=== PATIENT | male | born 1980 | race Caucasian/White ===

== ENCOUNTER 2023-06-15 19:20 | Emergency (ER) | payer OTHER, SELFPAY ==
[2023-06-15 19:28] VITALS: BP 143/95; PULSE 79; RESP 16; O2SAT 100; BMI 22.8
--- NOTE | 2023-06-15 19:38 | ECG_ITS ---
The [facility] Test Date: 2023-06-15 Pat Name: BRITT LAMB Department: Room: - Gender: Male [employer] Custodian: : 1980 Requested By: [id number] Order Number: [id number] Reading MD: ENMANUEL MARINA Measurements Intervals Speed Rate: 67 P: 62 VA: 162 QRS: 54 QRSD: 92 T: 36 QT: 394 QTc: 409 Interpretive Statements 1100 Sinus rhythm 2420 RSR (QR) in lead V1/V2, consistent with right ventricular conduction delay 9130 borderline ECG No previous ECG available for comparison Electronically Signed On 06-16-2023 6:57:20 EDT by ENMANUEL MARINA
--- NOTE | 2023-06-15 19:45 | CT_ITS ---
The [address] [address] Patient Name: BRITT LAMB MRN: [id number] date: 1980 Sex: M Assigned Patient Location: ER Current Patient Location: ER Accession/Order Number: [id number] Exam Date: 06/15/2023 20:59 Report Date: 06/15/2023 21:40 At the request of: WHITNEY MEDRANO Procedure: CT head/brain wo con CT HEAD WITHOUT CONTRAST. INDICATION: Dizziness. COMPARISON: None available for comparison TECHNIQUE: Axial CT head images from the skull base to the vertex without IV contrast were acquired. Coronal and sagittal reformats were also obtained. FINDINGS: EXTRA-AXIAL SPACE: Age-appropriate ventricles. No acute extra-axial collection. No extra-axial mass. No midline shift. CEREBRUM: No focal abnormality. No CT evidence of acute large territorial cortical infarct, hemorrhage or mass effect. CEREBELLUM: No focal abnormality. No CT evidence of acute infarct, hemorrhage or mass effect. BRAINSTEM: No focal abnormality. No CT evidence of acute infarct, hemorrhage or mass effect. EXTRACRANIAL STRUCTURES. The paranasal sinuses are clear. Mastoid air cells are clear. Orbits are unremarkable. No discrete pituitary mass. Intact calvarium. CT/CT head/brain wo con IMPRESSION: No acute intracranial abnormality. Electronically authenticated by: MEGAN EUBANKS Date: 06/15/2023 21:40
--- NOTE | 2023-06-15 19:46 | ED.DIZZY1 ---
HPI - Dizziness General Chief Complaint: Dizziness Stated Complaint: DIZZINESS, FATIGUE Time Seen by Provider: 06/15/23 19:23 History of Present Illness HPI Narrative: patient is a 42-year-old male who presents to the emergency department for the evaluation of dizziness/lightheadedness for the last month. he describes the dizziness as feeling off balance. He has not had any sensation of spinning. He has not had any severe headaches, visual changes, peripheral paresthesias. He has not passed out or had any head injuries. He denies any fevers, cough, congestion. he has not had any vomiting, diarrhea. He is eating and drinking well with no decrease in urination. He states he had an episode of dizziness today at work and went to the [facility] where he was told that his blood pressure was low and that he may be dehydrated. He states that these episodes of dizziness do not correlate with physical activity, he was able to pull weeds and mow his lawn yesterday with no episodes of dizziness. Related Data Allergies Allergy/AdvReac Type Severity Reaction Status Date / Time No Known Drug Allergies Allergy Verified 06/15/23 19:35 Review of Systems ROS Constitutional Denies: fever or chills Eyes Denies: change in vision Ears, nose, mouth, and throat Denies: throat pain Cardiovascular Denies: chest pain Respiratory Denies: shortness of breath or cough Gastrointestinal Denies: nausea or vomiting Musculoskeletal Denies: back pain or neck pain Integumentary/Breast Denies: rash Neurological Reports: dizziness; Denies: headache or weakness in extremities Hematologic/Lymphatic Denies: easy bruising PFSH PFS Social History Smoking status: Current every day smoker Exam Narrative Exam Narrative: Gen.: Awake, alert, in no distress Head: Normocephalic, atraumatic ENT: Moist mucous membranes Respiratory: No respiratory distress, lungs clear bilaterally Cardio: Regular rate and rhythm Extremities: Moves extremities equally, no injuries noted Psych: Normal mood and affect Neuro: No focal neuro deficit Skin: Warm, dry, intact Constitutional Vital Signs, click to edit/add: Last Vital Signs Pulse 79 06/15/23 19:28 Resp 16 06/15/23 19:28 BP 143/95 H 06/15/23 19:28 Pulse Ox 100 06/15/23 19:28 O2 Del Method Room Air 06/15/23 19:28 Course Vital Signs Vital signs: Vital Signs Pulse Rate 79 06/15/23 19:28 Respiratory Rate 16 06/15/23 19:28 Blood Pressure 143/95 H 06/15/23 19:28 Pulse Oximetry 100 06/15/23 19:28 Oxygen Delivery Method Room Air 06/15/23 19:28 Pulse Rate 79 06/15/23 19:28 Respiratory Rate 16 06/15/23 19:28 Blood Pressure 143/95 H 06/15/23 19:28 Pulse Oximetry 100 06/15/23 19:28 Oxygen Delivery Method Room Air 06/15/23 19:28 MDM - Dizziness MDM Narrative Medical decision making narrative: patient with normal vital signs, benign neuro exam. CT of the brain is unremarkable and lab studies including mono screen, thyroid studies are within normal limits. He is eating and drinking well, able to drink fluids in the Emergency Room. No indication for IV fluids at this time. He was strongly encouraged follow-up with his PCP for further evaluation and treatment. Return to the Emergency Room if symptoms change or worsen. Medical Records Attestation: I reviewed the patient's medical records. Lab Data Attestation: I reviewed the patient's lab results. Labs: Lab Results 06/15/23 Range/Units 19:56 WBC 8.1 (4.0-11.0) 10^3/uL RBC 4.99 (4.70-6.10) 10^6/uL Hgb 15.0 (14.0-18.0) g/dL Hct 43.2 (42.0-54.0) % MCV 86.6 (80.0-94.0) fL MCH 30.1 (25.9-34.0) pg MCHC 34.7 (29.9-35.2) g/dL RDW 12.9 (11.0-15.0) % Plt Count 398 (150-450) 10^3/uL MPV 9.6 (9.5-13.5) fL Neut % (Auto) 59.5 (43.0-75.0) % Lymph % (Auto) 33.2 (20.5-60.0) % Tama % (Auto) 5.1 (1.7-12.0) % Eos % (Auto) 1.7 (0.9-7.0) % Baso % (Auto) 0.4 (0.2-2.0) % Neut # (Auto) 4.8 (1.4-6.5) 10^3/uL Lymph # (Auto) 2.7 (1.2-3.8) 10^3/uL Tama # (Auto) 0.4 (0.3-0.8) 10^3/uL Eos # (Auto) 0.1 (0.0-0.7) 10^3/uL Baso # (Auto) 0.0 (0.0-0.1) 10^3/uL Abs Immat Gran (auto) 0.01 (0.00-0.03) 10^3/uL Imm/Tot Granulo (auto) 0.1 (0.0-0.5) % Sodium 136 (136-145) mmol/L Potassium 3.8 (3.5-5.1) mmol/L Chloride 101 (98-107) mmol/L Carbon Dioxide 28.4 (21.0-32.0) mmol/L Anion Gap 10.4 BUN 12.0 (7.0-18.0) mg/dL Creatinine 1.00 (0.70-1.30) mg/dL Est GFR ( Amer) >60 (>=60) Est GFR (Non-Af Amer) >60 (>=60) BUN/Creatinine Ratio 12.0 Glucose 90 (74-106) mg/dL Lactate 0.8 (0.4-2.0) mmol/L Calcium 9.2 (8.5-10.1) mg/dL Magnesium 2.0 (1.8-2.4) mg/dL Total Bilirubin 1.0 (0.2-1.0) mg/dL AST 15 (15-37) U/L ALT 36 (16-63) U/L Alkaline Phosphatase 100 (46-116) U/L Troponin I High Sens <4.0 L (4.0-76.1) pg/mL Total Protein 7.2 (6.4-8.2) g/dL Albumin 4.2 (3.4-5.0) g/dL Globulin 3.0 g/dL Albumin/Globulin Ratio 1.4 TSH 1.961 (0.358-3.740) uIU/mL Imaging Data CT scan - head: Attestation: I have reviewed the pertinent imaging results. Radiologist's impression: Procedure: CT head/brain wo con CT HEAD WITHOUT CONTRAST. INDICATION: Dizziness. COMPARISON: None available for comparison TECHNIQUE: Axial CT head images from the skull base to the vertex without IV contrast were acquired. Coronal and sagittal reformats were also obtained. FINDINGS: EXTRA-AXIAL SPACE: Age-appropriate ventricles. No acute extra-axial collection. No extra-axial mass. No midline shift. CEREBRUM: No focal abnormality. No CT evidence of acute large territorial cortical infarct, hemorrhage or mass effect. CEREBELLUM: No focal abnormality. No CT evidence of acute infarct, hemorrhage or mass effect. BRAINSTEM: No focal abnormality. No CT evidence of acute infarct, hemorrhage or mass effect. EXTRACRANIAL STRUCTURES. The paranasal sinuses are clear. Mastoid air cells are clear. Orbits are unremarkable. No discrete pituitary mass. Intact calvarium. IMPRESSION: No acute intracranial abnormality. Electronically authenticated by: MEGAN EUBANKS Date: 06/15/2023 21:40 ECG Data Attestation: I personally reviewed and interpreted this ECG as follows: (normal sinus rhythm at a rate of sixty-seven, no acute ST elevation or ectopy. EKG reviewed by attending physician) Discharge Plan Discharge Chief Complaint: Dizziness Clinical Impression: Dizziness Patient Disposition: Home, Self-Care Time of Disposition Decision: 21:44 Condition: Good Instructions: Lightheadedness (ED), Dizziness (ED) Stand Alone Forms: Portal Instructions Referrals: HERNANDO SAAVEDRA [Primary Care Provider] - 1 week
[2023-06-15 20:05] LABS: Basophils Percent Auto 0.4 % (0.2-2.0); Eosinophils Absolute Auto 0.1 10^3/uL (0.0-0.7); Eosinophils Percent Auto 1.7 % (0.9-7.0); Hematocrit 43.2 % (42.0-54.0); Immature Granulocytes Abs Auto 0.01 10^3/uL (0.00-0.03); Immature Granulocytes Pct Auto 0.1 % (0.0-0.5); Lymphocytes Absolute Auto 2.7 10^3/uL (1.2-3.8); Lymphocytes Percent Auto 33.2 % (20.5-60.0); Mean Corpuscular HGB Conc 34.7 g/dL (29.9-35.2); Mean Corpuscular Hemoglobin 30.1 pg (25.9-34.0); Mean Corpuscular Volume 86.6 fL (80.0-94.0); Mean Platelet Volume 9.6 fL (9.5-13.5); Monocytes Absolute Auto 0.4 10^3/uL (0.3-0.8); Monocytes Percent Auto 5.1 % (1.7-12.0); Neutrophils Absolute Auto 4.8 10^3/uL (1.4-6.5); Neutrophils Percent Auto 59.5 % (43.0-75.0); Platelet Count 398 10^3/uL (150-450); Red Blood Count 4.99 10^6/uL (4.70-6.10); Red Cell Distribution Width 12.9 % (11.0-15.0); White Blood Count 8.1 10^3/uL (4.0-11.0)
[2023-06-15 20:32] LABS: Lactate/Lactic Acid 0.8 mmol/L (0.4-2.0)
[2023-06-15 20:36] LABS: Alanine Aminotransferase 36 U/L (16-63); Albumin Globulin Ratio 1.4; Albumin Level 4.2 g/dL (3.4-5.0); Alkaline Phosphatase 100 U/L (46-116); Anion Gap 10.4; Aspartate Amino Transferase 15 U/L (15-37); Calcium 9.2 mg/dL (8.5-10.1); Carbon Dioxide 28.4 mmol/L (21.0-32.0); Chloride 101 mmol/L (98-107); Estimated GFR (African America >60 (>=60); Estimated GFR (Non-African Ame >60 (>=60); Glucose 90 mg/dL (74-106); Potassium 3.8 mmol/L (3.5-5.1); Sodium 136 mmol/L (136-145); Thyroid Stimulating Hormone 1.961 uIU/mL (0.358-3.740); Total Protein 7.2 g/dL (6.4-8.2); Troponin I High Sensitivity <4.0 pg/mL (4.0-76.1)
[2023-06-15 20:51] LABS: Bilirubin Urine NEGATIVE (NEGATIVE); Blood Urine NEGATIVE (NEGATIVE); Clarity Urine CLEAR (CLEAR); Color Urine LT. YELLOW (YELLOW); Glucose Urine UA NEGATIVE (NEGATIVE); Ketones Urine NEGATIVE (NEGATIVE); Leukocyte Esterase Urine NEGATIVE (NEGATIVE); Nitrite Urine NEGATIVE (NEGATIVE); Protein Urine NEGATIVE (NEG/TRACE); Specific Gravity Urine <=1.005 (1.005-1.025); Urobilinogen Urine 0.2 EU/dL (0.2-1.0); pH Urine 6.5 (5.0-9.0)
[2023-06-15 21:32] LABS: Urine Microscopic Indicated NO
[2023-06-15 21:42] LABS: Mono Screen NEGATIVE (NEGATIVE)
== END 2023-06-15 22:00 | disposition home or self-care (01) ==
PROVIDERS: Physician Assistant; Emergency Provider Emergency Medicine; PCP Family Medicine
DX: R42 Dizziness and giddiness (principal); F17.210 Nicotine dependence, cigarettes, uncomplicated
CPT/HCPCS: 36415; 70450; 80053; 81003; 83605; 83735; 84443; 84484; 85025; 86308; 93005; 99285

== ENCOUNTER 2023-06-25 16:17 | Outpatient (RCR) | payer OTHER, SELFPAY | END 2023-06-26 16:30 | disposition home or self-care (01) | LOC: PT 16:17 | PROVIDERS: PCP Family Medicine; Visit Provider Family Medicine | DX: H81.10 Benign paroxysmal vertigo, unspecified ear (principal) | CPT/HCPCS: 95992; 97161 ==

== ENCOUNTER 2024-12-19 18:40 | Emergency (ER) | payer OTHER, SELFPAY ==
[2024-12-19] VITALS (11 sets, daily range): BP systolic 130–138; BP diastolic 88–98; PULSE 57–82; TEMP 36.8; O2SAT 99; BMI 20.8
--- OUTSIDE RECORDS SUMMARY | 2024-12-19 18:50 | XMS_ITS | CCD ---
Author Organization [facility] Care Team Providers Care Accounts Receivable Assistant Name Role Phone Ritu Matthews Unavailable Unavailable Ritu Matthews Unavailable Unavailable JACE, HERNANDO~[id number] UNKNOWN Unavailable Unavailable Jace, Hernando Unavailable Medications Current Medications Medication Drug Class(es) Dates Sig (Normalized) Sig (Original) amoxicillin 875 mg oral tablet (1 source) Penicillin-class Antibacterial Start: 01-10-2015 take 1 tablet by mouth every twelve hours Amoxicillin 875 MG 1 tablet Orally Twice a day for 7 day(s) Dec, Active amoxicillin 875 mg / clavulanate 125 mg oral tablet (5 sources) Penicillin-class Antibacterial Start: 04-29-2024 take 0.5 tablet by mouth twice daily Amoxicillin-Pot Clavulanate Active 0.5 TAB PO Twice daily April 29, 2024 12:00am Start: 04-08-2021 take 1 tablet by montserrat th every twelve hours Amoxicillin-Pot Clavulanate 875-125 MG 1 tablet Orally every 12 hrs for 10 days Mar, Active clindamycin 300 mg oral capsule (1 source) Lincosamide Antibacterial Start: 04-29-2024 take 300 mg by mouth three times daily Clindamycin Hcl Active 300 MG PO Three times daily 17 04April 29, 2024 12:00am Problems Active Problems Problem Classification Problem Date Documented Da te Episodic/Chronic Conditions associated with dizziness or vertigo (1 source) Dizziness and giddiness Episodic Diseases of mouth; excluding dental (6 sources) Sialolithiasis; Translations: [Sialolithiasis] Episodic Other non-traumatic joint disorders (6 sources) Shoulder joint pain; Translations: [Joint pain, shoulder region] Episodic Other non-traumatic joint disorders (6 sources) Arthralgia of the pelvic region and thigh; Translations: [Pain in joint, pelvic region and thigh] Episodic Past or Other Problems Problem Classification Problem Date Documented Da te Episodic/Chronic Other upper respiratory infections (1 source) Acute sinusitis, unspecified; Translations: [Acute sinusitis, unspecified J01.90] Onset: 07-25-2021 Resolved: 07-25-2021 Episodic Vital Signs Date Time Vital Sign Value Performing Clinician Facility 04-29-2024 10:18-0400 Body height 176.53 cm [facility] 04-29-2024 10:18-0400 Body mass index (BMI) [Ratio] 21.5 kg/m2 [facility] 04-29-2024 10:18-0400 Body temperature 97.2 [degF] [facility] 04-29-2024 10:18-0400 Body weight 67.13 kg [facility] 04-29-2024 10:18-0400 Diastolic blood pressure 68 mm[Hg] [facility] 04-29-2024 10:18-0400 Heart rate 57 /min [facility] 04-29-2024 10:18-0400 Respiratory rate 16 /min [facility] 04-29-2024 10:18-0400 Systolic blood pressure 124 mm[Hg] [facility] 06-25-2023 11:15-0400 Body height 176.53 cm Hernando Jace Other [employer] [facility] Other 06-25-2023 11:15-0400 Body mass index (BMI) [Ratio] 21.1 kg/m2 Hernando Jace Other [facility] Other 06-25-2023 11:15-0400 Body temperature 97.2 [degF] Hernando Jace Other [facility] Other 06-25-2023 11:15-0400 Body weight 65.77 kg Hernando Jace Other [facility] Other 06-25-2023 11:15-0400 Diastolic blood pressure 60 mm[Hg] Hernando Jace Other [facility] Other 06-25-2023 11:15-0400 Respiratory rate 20 /min Hernando Jace Other [facility] Other 06-25-2023 11:15-0400 SaO2% (BldA) [Mass fraction] 99 % Hernando Jace Other [facility] Other 06-25-2023 11:15-0400 Systolic blood pressure 96 mm[Hg] Hernando Jace Other [facility] Other 07-25-2021 15:15-0400 Body height 176.53 cm Hernando Jace Other [facility] Other 07-25-2021 15:15-0400 Body mass index (BMI) [Ratio] 21.1 kg/m2 Hernando Jace Other [facility] Other 07-25-2021 15:15-0400 Body temperature 99.3 [degF] Hernando Jace Other [facility] Other 07-25-2021 15:15-0400 Body weight 65.77 kg Hernando Jace Other [facility] Other 07-25-2021 15:15-0400 Diastolic blood pressure 78 mm[Hg] Hernando Jace Other [facility] Other 07-25-2021 15:15-0400 Respiratory rate 20 /min Hernando Jace Other [facility] Other 07-25-2021 15:15-0400 SaO2% (BldA) [Mass fraction] 98 % Hernando Jace Other [facility] Other 07-25-2021 15:15-0400 Systolic blood pressure 104 mm[Hg] Hernando Jace Other [facility] Other Encounters Encounter Date Encounter Type Care Provider Facility Start: 04-29-2024 End: 04-29-2024 ambulatory [facility] Work Phone: Start: 04-29-2024 End: 04-29-2024 Patient encounter procedure [facility] Work Phone: Start: 08-24-2023 End: 08-24-2023 ambulatory Hernando Jace Other [facility] Other Start: 08-24-2023 Telephone encounter Hernando Jace [facility] Start: 06-29-2023 End: 06-29-2023 ambulatory Hernando Jace Other [facility] Other Start: 06-29-2023 Telephone encounter Hernando Jace [facility] Start: 06-25-2023 End: 06-25-2023 ambulatory Hernando Jace Other [facility] Other Start: 06-25-2023 Office outpatient vi sit 25 minutes Hernando Jace [facility] Start: 10-09-2022 End: 10-09-2022 ambulatory Hernando Jace Other [facility] Other Start: 10-09-2022 Telephone encounter Hernando Jace [facility] Start: 09-04-2021 End: 09-04-2021 ambulatory Hernando Jace Other [facility] Other Start: 09-04-2021 Telephone encounter Hernando Mccormick [facility] Start: 07-25-2021 Office outpatient vi sit 15 minutes Hernando Mccormick [facility] Start: 01-28-2013 End: 01-28-2013 Emergency department patient visit Ritu Matthews Facility:[facility] Payers Date Payer Category Payer Unknown [id number] Unknown [id number] Unknown [id number] Social History Date Type Detail Facility Unknown if ever smoked [facility] Other Sex Assigned At Sex Assigned At Bir th [facility] Other Start: 04-26-2024 Tobacco smoking status NHIS Smoker (finding) [facility] Start: 1980 Sex Assigned At Male F [facility] Evaluation note 06-25-2023 Note Date & Type Note Facility 06-25-2023 Evaluation note Encounter Date Diagnosis Assessment Notes May, Dizziness (ICD-10 - R42) Lengthy 30+ minute discussion with patient today regarding his concerns. I really think this sounds like positional vertigo, especially in light of all of the negative testing that was performed recently through the ER. We discussed at great length the pathophysiology of positional vertigo and the fact that we need to have him checked by physical therapy for both diagnostic as well as treatment options. He is agreeable to this. I also think the patient can go back to work, but he will just need to be very cautious about his dizziness if it presents. He is agreeable. I await the results from physical therapy. If this is of no benefit/negative, then we will need to have him see neurology if his symptoms persist. [facility] Other Evaluation note 07-25-2021 Note Date & Type Note Facility 07-25-2021 Evaluation note Encounter Date Diagnosis Assessment Notes Jun, Acute sinusitis, unspecified (ICD-10 - J01.90) eRX sent. Pt to call if no improvement seen - consider dentist if jaw/tooth issues persist. [facility] Other Evaluation note Note Date & Type Note Facility Evaluation note No Information [facility] [employer] Other Evaluation note Note Date & Type Note Facility Evaluation note No assessment information [facility] Work Phone: Summary Purpose Family History No Family History Records Found Advance Directives Advance Directive Response Recorded Date/ Time Advance Directives No April 26 12:22pm Chief Complaint and Reason for Visit Chief Complaint lump on back of leg for 20 yrs, now bothering Additional Source Comments (unrecognized sect ion and content) No Status Records Found INFORMATION SOURCE (unrecogn ized section and content) DATE CREATED AUTHOR 03/24/2018 Callahan Must See [place] [facility] REASON FOR VISIT (unrecogniz ed section and content) IN LAB Per [facility]anna care - sinus congestion, swollen lower right jawClinical Acute IllnessClinical [facility]nessB[facility] for lightheadedness and dizzinessClinical Acute IllnessClinical Acute Illness Care Teams (unrecognized sec tion and content) Team Status: Active Member Role Status Dates Hernando Mccormick DO Primary Care Provider Active Team Status: Inactive Member Role Status Dates Hernando Mccormick DO Primary Care Provid er, Attending Provider Active Start: April 29, 2024 End: April 29, 2024 Goals (unrecognized section and content) Goals may be documented in a n alternate section FOR RECORDS PERTAINING TO PATIENTS WHO ARE OR HAVE BEEN ENROLLED IN A CHEMICAL DEPENDENCY/SUBSTANCEABUSE PROGRAM, SOME INFORMATION MAY BE OMITTED. This clinical summary was aggregated from multiple sources. Caution should be exercised in using it in the provision of clinical care. This summary normalizes information from multiple sources, and as a consequence, information in this document may materially change the coding, format and clinical context of patient data. In addition, data may be omitted in some cases. CLINICAL DECISIONS SHOULD BE BASED ON THE PRIMARY CLINICAL RECORDS. [employer] provides no warranty or guarantee of the accuracy or completeness of information in this document.
--- NOTE | 2024-12-19 18:59 | ECG_ITS ---
The [facility] Test Date: 2024-12-19 Pat Name: BRITT LAMB Department: Room: - Gender: Male Call Manager: : 1980 Requested By: [id number] Order Number: [id number] Reading MD: JAZMYN PABLO M.D. Measurements Intervals Hart[place] Rate: 62 P: 76 FL: 166 QRS: 16 QRSD: 88 T: 61 QT: 390 QTc: 395 Interpretive Statements 1100 Sinus rhythm 2420 RSR (QR) in lead V1/V2, consistent with right ventricular conduction delay 9130 borderline ECG Compared to ECG 06/15/2023 19:39:02 No significant changes Electronically Signed On 12-19-2024 19:47:34 EDT by JAZMYN PABLO M.D.
--- NOTE | 2024-12-19 19:01 | ED_ITS ---
Documented by User: JORGITO De La Cruz 12/19/24 21:23 HPI - Weakness General Chief complaint: Weakness Stated complaint: SOB, HEAVINESS, FATIGUE Time Seen by Provider: 12/19/24 18:46 Source: patient History of Present Illness HPI Narrative: Patient is a 44-year-old male who presents to the emergency department for evaluation of multiple complaints of generalized weakness and fatigue for the last 2 weeks. He states he feels when he goes to work that he is okay but after work he feels as though his limbs are heavy. He has not had any headache, dizziness, visual changes. He denies fevers, congestion, chest pain or shortness of breath. No vomiting or diarrhea. He arrives ambulatory, he drove himself to the ER. Related Data Home Medications ?Medication ?Instructions ?Recorded ?Confirmed No Known Home Medications 12/19/24 12/19/24 Allergies Allergy/AdvReac Type Severity Reaction Status Date / Time No Known Drug Allergies Allergy Verified 06/15/23 19:35 Review of Systems ROS Constitutional Denies: fever or chills Ears, nose, mouth, and throat Denies: throat pain or nasal congestion Cardiovascular Denies: chest pain Respiratory Denies: shortness of breath or cough Gastrointestinal Denies: nausea or vomiting Musculoskeletal Denies: back pain or neck pain Integumentary/Breast Denies: rash Neurological Reports: weakness in extremities; Denies: headache, numbness in extremities or dizziness Hematologic/Lymphatic Denies: easy bruising or easy bleeding PFSH PFSH Social History Smoking status: Current every day smoker Little interest or pleasure in doing things: not at all Feeling down, depressed, or hopeless: not at all Exam Narrative Exam Narrative: Gen.: Awake, alert, in no distress Head: Normocephalic, atraumatic ENT: Moist mucous membranes Respiratory: No respiratory distress, lungs clear bilaterally Cardio: Regular rate and rhythm Gastrointestinal: Abdomen is soft, nondistended and nontender to palpation Extremities: Moves extremities equally, no injuries noted Psych: Normal mood and affect Neuro: No focal neuro deficit Skin: Warm, dry, intact Constitutional Vital Signs, click to edit/add: Last Vital Signs Temp 98.2 F 12/19/24 18:46 Pulse 65 12/19/24 20:20 Resp 17 12/19/24 20:20 BP 138/98 H 12/19/24 18:46 Pulse Ox 99 12/19/24 18:46 O2 Del Method Room Air 12/19/24 18:46 Course Vital Signs Vital signs: Vital Signs Temperature 98.2 F 12/19/24 18:46 Pulse Rate 82 12/19/24 18:46 Respiratory Rate 18 12/19/24 18:46 Blood Pressure 138/98 H 12/19/24 18:46 Pulse Oximetry 99 12/19/24 18:46 Oxygen Delivery Method Room Air 12/19/24 18:46 Temperature 98.2 F 12/19/24 18:46 Pulse Rate 65 12/19/24 20:20 Respiratory Rate 17 12/19/24 20:20 Blood Pressure 138/98 H 12/19/24 18:46 Pulse Oximetry 99 12/19/24 18:46 Oxygen Delivery Method Room Air 12/19/24 18:46 MDM - Weakness MDM Narrative Medical decision making narrative: 2120: Patient medicated with fluids, labs and EKG are unremarkable. CT is pending at this time and case is turned over to attending physician for disposition. SHARED APC VISIT, PHYSICIAN ATTESTATION: [id number] I performed a substantive part of the MDM during the patient?s E/M visit. I personally evaluated and examined the patient. I personally made or approved the documented management plan and acknowledge its risk of complications. Medical Records Attestation: I reviewed the patient's medical records. Lab Data Attestation: I reviewed the patient's lab results. Labs: Lab Results 12/19/24 12/19/24 Range/Units 19:05 21:15 WBC 6.1 (4.0-11.0) 10^3/uL RBC 5.49 (4.70-6.10) 10^6/uL Hgb 16.1 (14.0-18.0) g/dL Hct 46.1 (42.0-54.0) % MCV 84.0 (80.0-94.0) fL MCH 29.3 (25.9-34.0) pg MCHC 34.9 (29.9-35.2) g/dL RDW 13.1 (11.0-15.0) % Plt Count 353 (150-450) 10^3/uL MPV 9.2 L (9.5-13.5) fL Neut % (Auto) 52.7 (43.0-75.0) % Lymph % (Auto) 38.6 (20.5-60.0) % [place] % (Auto) 5.3 (1.7-12.0) % Eos % (Auto) 2.1 (0.9-7.0) % Baso % (Auto) 1.0 (0.2-2.0) % Neut # (Auto) 3.2 (1.4-6.5) 10^3/uL Lymph # (Auto) 2.3 (1.2-3.8) 10^3/uL [place] # (Auto) 0.3 (0.3-0.8) 10^3/uL Eos # (Auto) 0.1 (0.0-0.7) 10^3/uL Baso # (Auto) 0.1 (0.0-0.1) 10^3/uL Abs Immat Gran (auto) 0.02 (0.00-0.03) 10^3/uL Imm/Tot Granulo (auto) 0.3 (0.0-0.5) % PT 11.2 (9.0-11.6) sec INR 1.06 Sodium 138 (136-145) mmol/L Potassium 3.9 (3.5-5.1) mmol/L Chloride 102 (98-107) mmol/L Carbon Dioxide 24.9 (21.0-32.0) mmol/L Anion Gap 15.0 BUN 14.0 (7.0-18.0) mg/dL Creatinine 1.05 (0.70-1.30) mg/dL Est GFR ( Amer) >60 (>=60 mL/min/1.73m^2) Est GFR (Non-Af Amer) >60 (>=60 mL/min/1.73m^2) BUN/Creatinine Ratio 13.3 Glucose 92 (74-106) mg/dL Lactate 0.9 (0.4-2.0) mmol/L Calcium 9.2 (8.5-10.1) mg/dL Magnesium 2.1 (1.8-2.4) mg/dL Total Bilirubin 1.3 H (0.2-1.0) mg/dL AST 16 (15-37) U/L ALT 29 (16-63) U/L Alkaline Phosphatase 134 H (46-116) U/L Total Creatine Kinase 47 (39-308) U/L CK-MB (CK-2) <0.50 (<=3.60) ng/mL Myoglobin 30 (16-96) ng/mL Troponin I High Sens <4.0 L (4.0-76.1) pg/mL Total Protein 7.2 (6.4-8.2) g/dL Albumin 4.0 (3.4-5.0) g/dL Globulin 3.2 g/dL Albumin/Globulin Ratio 1.3 TSH 1.864 (0.358-3.740) uIU/mL Urine Color Lt. yellow (YELLOW) Urine Clarity Clear (CLEAR) Urine pH 6.0 (5.0-9.0) Ur Specific [place] 1.020 (1.005-1.025) Urine Protein Negative (NEG/TRACE) mg/dL Urine Glucose (UA) Negative (NEGATIVE) mg/dL Urine Ketones >=80 A (NEGATIVE) mg/dL Urine Occult Blood Trace-i (NEGATIVE) Urine Nitrite Negative (NEGATIVE) Urine Bilirubin Negative (NEGATIVE) Urine Urobilinogen 0.2 (0.2-1.0) EU/dL Ur Leukocyte Esterase Negative (NEGATIVE) Urine RBC 0-2 (0-2) #/HPF Urine WBC 0-2 A (NONE SEEN) #/HPF Ur Squamous Epith Cells None seen (NONE/RARE) #/LPF Urine Crystals None seen (None Seen) #/HPF Urine Bacteria None seen (NONE SEEN) #/HPF Urine Casts None seen (NONE SEEN) #/LPF Urine Mucus Small A (NONE SEEN) Ur Culture Indicated? No Monoscreen Negative (NEGATIVE) Imaging Data CT scan - head: Attestation: I have reviewed the pertinent imaging results. ECG Data Attestation: I personally reviewed and interpreted this ECG as follows: (Normal sinus rhythm at a rate of 62, no acute ST elevation or ectopy. EKG reviewed by attending physician) Discharge Plan Discharge Chief Complaint: Weakness Clinical Impression: Fatigue, Weakness Patient Disposition: Home, Self-Care Time of Disposition Decision: 21:55 Condition: Good Mode of Transportation: Private Vehicle Prescriptions / Home Meds: No Action No Known Home Medications Print Language: Japanese Instructions: Weakness (ED), Fatigue (ED) Referrals: HERNANDO SAAVEDRA [Primary Care Provider] - 1 week Documented by User: Richar Lockhart MD 12/19/24 21:57 HPI - Weakness General Chief complaint: Weakness Stated complaint: SOB, HEAVINESS, FATIGUE Time Seen by Provider: 12/19/24 18:46 Related Data Home Medications ?Medication ?Instructions ?Recorded ?Confirmed No Known Home Medications 12/19/24 12/19/24 Allergies Allergy/AdvReac Type Severity Reaction Status Date / Time No Known Drug Allergies Allergy Verified 06/15/23 19:35 PFSH PFSH Social History Smoking status: Current every day smoker Little interest or pleasure in doing things: not at all Feeling down, depressed, or hopeless: not at all Exam Constitutional Vital Signs, click to edit/add: Last Vital Signs Temp 98.2 F 12/19/24 18:46 Pulse 65 12/19/24 20:20 Resp 17 12/19/24 20:20 BP 138/98 H 12/19/24 18:46 Pulse Ox 99 12/19/24 18:46 O2 Del Method Room Air 12/19/24 18:46 Course Vital Signs Vital signs: Vital Signs Temperature 98.2 F 12/19/24 18:46 Pulse Rate 82 12/19/24 18:46 Respiratory Rate 18 12/19/24 18:46 Blood Pressure 138/98 H 12/19/24 18:46 Pulse Oximetry 99 12/19/24 18:46 Oxygen Delivery Method Room Air 12/19/24 18:46 Temperature 98.2 F 12/19/24 18:46 Pulse Rate 65 12/19/24 20:20 Respiratory Rate 17 12/19/24 20:20 Blood Pressure 138/98 H 12/19/24 18:46 Pulse Oximetry 99 12/19/24 18:46 Oxygen Delivery Method Room Air 12/19/24 18:46 MDM - Weakness MDM Narrative Medical decision making narrative: 2120: Patient medicated with fluids, labs and EKG are unremarkable. CT is pending at this time and case is turned over to attending physician for disposition. SHARED APC VISIT, PHYSICIAN ATTESTATION: [id number] I performed a substantive part of the MDM during the patient?s E/M visit. I personally evaluated and examined the patient. I personally made or approved the documented management plan and acknowledge its risk of complications. JK 9:55 pm extensive workup here is negative including TSH. WBC is normal at 6.1 and hemoglobin is normal at 16.1 urinalysis also negative. No specific reason for his symptoms is found and he is discharged home but will follow-up with his PCP. Treatment diagnosis and follow-up were discussed with the patient. Differential Diagnosis Differential diagnosis: Likely anemia, hypoglycemia, hypothyroidism and dehydration Lab Data Labs: Lab Results 12/19/24 12/19/24 Range/Units 19:05 21:15 WBC 6.1 (4.0-11.0) 10^3/uL RBC 5.49 (4.70-6.10) 10^6/uL Hgb 16.1 (14.0-18.0) g/dL Hct 46.1 (42.0-54.0) % MCV 84.0 (80.0-94.0) fL MCH 29.3 (25.9-34.0) pg MCHC 34.9 (29.9-35.2) g/dL RDW 13.1 (11.0-15.0) % Plt Count 353 (150-450) 10^3/uL MPV 9.2 L (9.5-13.5) fL Neut % (Auto) 52.7 (43.0-75.0) % Lymph % (Auto) 38.6 (20.5-60.0) % [place] % (Auto) 5.3 (1.7-12.0) % Eos % (Auto) 2.1 (0.9-7.0) % Baso % (Auto) 1.0 (0.2-2.0) % Neut # (Auto) 3.2 (1.4-6.5) 10^3/uL Lymph # (Auto) 2.3 (1.2-3.8) 10^3/uL [place] # (Auto) 0.3 (0.3-0.8) 10^3/uL Eos # (Auto) 0.1 (0.0-0.7) 10^3/uL Baso # (Auto) 0.1 (0.0-0.1) 10^3/uL Abs Immat Gran (auto) 0.02 (0.00-0.03) 10^3/uL Imm/Tot Granulo (auto) 0.3 (0.0-0.5) % PT 11.2 (9.0-11.6) sec INR 1.06 Sodium 138 (136-145) mmol/L Potassium 3.9 (3.5-5.1) mmol/L Chloride 102 (98-107) mmol/L Carbon Dioxide 24.9 (21.0-32.0) mmol/L Anion Gap 15.0 BUN 14.0 (7.0-18.0) mg/dL Creatinine 1.05 (0.70-1.30) mg/dL Est GFR ( Amer) >60 (>=60 mL/min/1.73m^2) Est GFR (Non-Af Amer) >60 (>=60 mL/min/1.73m^2) BUN/Creatinine Ratio 13.3 Glucose 92 (74-106) mg/dL Lactate 0.9 (0.4-2.0) mmol/L Calcium 9.2 (8.5-10.1) mg/dL Magnesium 2.1 (1.8-2.4) mg/dL Total Bilirubin 1.3 H (0.2-1.0) mg/dL AST 16 (15-37) U/L ALT 29 (16-63) U/L Alkaline Phosphatase 134 H (46-116) U/L Total Creatine Kinase 47 (39-308) U/L CK-MB (CK-2) <0.50 (<=3.60) ng/mL Myoglobin 30 (16-96) ng/mL Troponin I High Sens <4.0 L (4.0-76.1) pg/mL Total Protein 7.2 (6.4-8.2) g/dL Albumin 4.0 (3.4-5.0) g/dL Globulin 3.2 g/dL Albumin/Globulin Ratio 1.3 TSH 1.864 (0.358-3.740) uIU/mL Urine Color Lt. yellow (YELLOW) Urine Clarity Clear (CLEAR) Urine pH 6.0 (5.0-9.0) Ur Specific [place] 1.020 (1.005-1.025) Urine Protein Negative (NEG/TRACE) mg/dL Urine Glucose (UA) Negative (NEGATIVE) mg/dL Urine Ketones >=80 A (NEGATIVE) mg/dL Urine Occult Blood Trace-i (NEGATIVE) Urine Nitrite Negative (NEGATIVE) Urine Bilirubin Negative (NEGATIVE) Urine Urobilinogen 0.2 (0.2-1.0) EU/dL Ur Leukocyte Esterase Negative (NEGATIVE) Urine RBC 0-2 (0-2) #/HPF Urine WBC 0-2 A (NONE SEEN) #/HPF Ur Squamous Epith Cells None seen (NONE/RARE) #/LPF Urine Crystals None seen (None Seen) #/HPF Urine Bacteria None seen (NONE SEEN) #/HPF Urine Casts None seen (NONE SEEN) #/LPF Urine Mucus Small A (NONE SEEN) Ur Culture Indicated? No Monoscreen Negative (NEGATIVE) Imaging Data CT scan - head: Radiologist's impression: Negative noncontrast head CT Discharge Plan Discharge Chief Complaint: Weakness Clinical Impression: Fatigue, Weakness Patient Disposition: Home, Self-Care Time of Disposition Decision: 21:55 Condition: Good Mode of Transportation: Private Vehicle Prescriptions / Home Meds: No Action No Known Home Medications Print Language: Japanese Instructions: Weakness (ED), Fatigue (ED) Referrals: HERNANDO SAAVEDRA [Primary Care Provider] - 1 week
[2024-12-19] MEDS: 0.9 % SODIUM CHLORIDE 1,000 ML 999 ML IV (19:10)
[2024-12-19 19:13] LABS: Basophils Absolute Auto 0.1 10^3/uL (0.0-0.1); Eosinophils Absolute Auto 0.1 10^3/uL (0.0-0.7); Eosinophils Percent Auto 2.1 % (0.9-7.0); Hematocrit 46.1 % (42.0-54.0); Hemoglobin 16.1 g/dL (14.0-18.0); Immature Granulocytes Abs Auto 0.02 10^3/uL (0.00-0.03); Immature Granulocytes Pct Auto 0.3 % (0.0-0.5); Lymphocytes Absolute Auto 2.3 10^3/uL (1.2-3.8); Lymphocytes Percent Auto 38.6 % (20.5-60.0); Mean Corpuscular HGB Conc 34.9 g/dL (29.9-35.2); Mean Corpuscular Hemoglobin 29.3 pg (25.9-34.0); Mean Platelet Volume 9.2 fL (9.5-13.5); Monocytes Absolute Auto 0.3 10^3/uL (0.3-0.8); Monocytes Percent Auto 5.3 % (1.7-12.0); Neutrophils Absolute Auto 3.2 10^3/uL (1.4-6.5); Neutrophils Percent Auto 52.7 % (43.0-75.0); Platelet Count 353 10^3/uL (150-450); Red Blood Count 5.49 10^6/uL (4.70-6.10); Red Cell Distribution Width 13.1 % (11.0-15.0); White Blood Count 6.1 10^3/uL (4.0-11.0)
[2024-12-19 19:25] LABS: Internal Control Within Normal Limits; Mono Screen NEGATIVE (NEGATIVE)
[2024-12-19 19:31] LABS: Alanine Aminotransferase 29 U/L (16-63); Albumin Globulin Ratio 1.3; Alkaline Phosphatase 134 U/L (46-116); Aspartate Amino Transferase 16 U/L (15-37); BUN Creatinine Ratio 13.3; Bilirubin Total 1.3 mg/dL (0.2-1.0); Calcium 9.2 mg/dL (8.5-10.1); Carbon Dioxide 24.9 mmol/L (21.0-32.0); Chloride 102 mmol/L (98-107); Estimated GFR (African America >60 (>=60 mL/min/1.73m^2); Estimated GFR (Non-African Ame >60 (>=60 mL/min/1.73m^2); Globulin 3.2 g/dL; Glucose 92 mg/dL (74-106); Potassium 3.9 mmol/L (3.5-5.1); Sodium 138 mmol/L (136-145); Total Protein 7.2 g/dL (6.4-8.2)
[2024-12-19 19:33] LABS: INR 1.06; Prothrombin Time 11.2 sec (9.0-11.6)
[2024-12-19 19:38] LABS: Lactate/Lactic Acid 0.9 mmol/L (0.4-2.0); Thyroid Stimulating Hormone 1.864 uIU/mL (0.358-3.740)
[2024-12-19 19:45] LABS: Creatine Kinase 47 U/L (39-308); Creatine Kinase MB <0.50 ng/mL (<=3.60); Magnesium 2.1 mg/dL (1.8-2.4); Myoglobin 30 ng/mL (16-96); Troponin I High Sensitivity <4.0 pg/mL (4.0-76.1)
[2024-12-19 21:24] LABS: Bilirubin Urine NEGATIVE (NEGATIVE); Blood Urine TRACE-I (NEGATIVE); Clarity Urine CLEAR (CLEAR); Color Urine LT. YELLOW (YELLOW); Glucose Urine UA NEGATIVE (NEGATIVE); Ketones Urine >=80 mg/dL (NEGATIVE); Leukocyte Esterase Urine NEGATIVE (NEGATIVE); Nitrite Urine NEGATIVE (NEGATIVE); Protein Urine NEGATIVE (NEG/TRACE); Urobilinogen Urine 0.2 EU/dL (0.2-1.0)
[2024-12-19 21:33] LABS: Bacteria Urine NONE SEEN #/HPF (NONE SEEN); Mucus Urine SMALL (NONE SEEN); RBC Urine 0-2 #/HPF (0-2); WBC Urine 0-2 #/HPF (NONE SEEN)
[2024-12-19 21:34] LABS: Cast Seen? NONE SEEN #/LPF (NONE SEEN); Crystals Seen? None Seen #/HPF (None Seen); Squamous Epithelial Cell Urine NONE SEEN #/LPF (NONE/RARE); Urine Culture Indicated NO
== END 2024-12-19 22:04 | disposition home or self-care (01) ==
PROVIDERS: Physician Assistant; Emergency Provider Emergency Medicine; PCP Family Medicine
DX: R53.83 Other fatigue (principal); R53.1 Weakness; F17.200 Nicotine dependence, unspecified, uncomplicated
CPT/HCPCS: 36415; 70450; 80053; 81001; 82550; 82553; 83605; 83735; 83874; 84443; 84484; 85025; 85610; 86308; 93005; 99285